=== PATIENT | male | born 1970 | race Caucasian/White ===

== ENCOUNTER 2017-11-20 14:05 | Inpatient (IN) ==
[2017-11-20] MEDS ORDERED: Vancomycin 1,000 MG VIAL IVPB ONE (14:37)
[2017-11-20] MEDS ORDERED: *HR* OxyCODONE/APAP 5/325 TABLET PO ONE (14:37)
--- NOTE | 2017-11-20 14:40 | Emergency Department Note ---
Disposition Clinical Impression: Cellulitis of second toe of left foot Disposition: Admitted As Inpatient Condition: Fair Referrals: Jay Schultz MD [Primary Care Provider] - Forms: ED Satisfaction Letter Time of Disposition: 15:25 (Dr Rockwell, Sessions) Wound/Laceration HPI - General Chief Complaint: ED Wound/Laceration Stated Complaint: toe is infected Time Seen by Provider: 11/20/17 14:18 Source: patient Mode of arrival: ambulatory Limitations: no limitations Nursing Notes Reviewed: Yes Vital Signs Reviewed: Yes - History of Present Illness Onset (ago): week(s) (5) Extremity Location: Left: foot (2nd toe) Place: home Patient Tetanus UTD: Yes Mechanism: other (Swelling of the left foot 47-year-old male presents to the ED secondary to failed outpatient treatment of second left toe infection. The patient underwent cyst removal at the joint of his distal second toe and the pin was removed on Wednesday. He noted increasing erythema, swelling and redness of the second toe with swelling of the foot in the last 5 days.) Associated symptoms: Reports: pain, unable to move injured part, other. Denies : loss of feeling/numbness, suspect foreign body present, nausea/vomiting, fever , syncope Pain Severity: moderate Treatments prior to arrival: other (Patient has been taking clindamycin 300 mg 3 times a day for the last 5 days.) - Related Data Home Medications Medication Instructions Recorded Confirmed Aspirin [Lo-Dose Aspirin EC] 81 mg PO DAILY 10/06/17 10/06/17 Cyanocobalamin (Vitamin B-12) 1,000 mcg PO DAILY 10/06/17 10/06/17 [Vitamin B-12] Lansoprazole [Prevacid] 60 mg PO DAILY 10/06/17 10/06/17 Losartan Potassium [Cozaar] 50 mg PO DAILY 10/06/17 10/06/17 Previous Rx's Medication Instructions Recorded Clindamycin HCl 300 mg PO TID #30 capsule 11/14/17 Mupirocin [Bactroban Oint] 22 appl TP BID #1 tube 11/14/17 Allergies Allergy/AdvReac Type Severity Reaction Status Date / Time Penicillins [PCN] Allergy Rash Verified 11/14/17 16:51 morphine AdvReac Irritable Verified 11/14/17 16:51 Past Medical History - Past Medical History Medical history: Reports: non-contributory Surgical history: Reports: non-contributory Psychiatric history: Reports: no psych history - Social History Smoking Status: Never smoker Smokeless Tobacco Status: No Alcohol use: Reports: none Drug use: Reports: none Physical Exam - General Limitations: no limitations General appearance: alert, in no apparent distress - Head Head exam: atraumatic, normocephalic, normal inspection - Respiratory Respiratory exam: Present: normal lung sounds bilaterally - Cardiovascular Cardiovascular exam: Present: regular rate, normal rhythm, normal heart sounds - Extremities Exam Extremities exam: Present: normal inspection, full ROM. Absent: tenderness, pedal edema - Expanded Lower Extremity Exam Ankle exam: Present: normal inspection, full ROM Foot/toe exam: Present: tenderness (Second toe circumferentially), swelling ( Second toe circumferentially), erythema (Second toe circumferentially), other ( Global left foot) Neurovascular/Tendon exam: Absent: motor deficit, sensory deficit, tendon deficit - Neurological Exam Neurological exam: Present: alert, oriented X3 - Psychiatric Psychiatric exam: Present: normal affect, normal mood - Skin Skin exam: Present: warm, dry, normal color Course Vital Signs Temperature 98.1 F 11/20/17 14:07 Pulse Rate 93 11/20/17 14:07 Respiratory Rate 20 11/20/17 14:07 Blood Pressure 146/85 11/20/17 14:07 O2 Sat by Pulse Oximetry 94 11/20/17 14:07 Temperature 98.1 F 11/20/17 14:07 Pulse Rate 93 11/20/17 14:07 Respiratory Rate 20 11/20/17 14:07 Blood Pressure 146/85 11/20/17 14:07 O2 Sat by Pulse Oximetry 94 11/20/17 14:07 Oxygen Delivery Oxygen Delivery Room Air Wound/Laceration - MDM Narrative Medical decision making narrative: Failed outpatient treatment with clindamycin of cellulitis. The patient presentation was discussed with tank insulator rubber cardiopulmonary supervisor as well as the hospitalist. He will be admitted for IV antibiotics and reassess in the next 24 hours. There is low clinical suspicion for osteomyelitis but will be relayed to the admitting hospitalist. - Differential Diagnosis Differential Diagnosis: Likely: abscess, fracture - Medical Records Medical records reviewed: Yes I reviewed the patient's medical records. - Lab Data Lab results reviewed: Yes I reviewed the patient's lab results. Result diagrams: 11/20/17 14:45 11/20/17 14:45 Lab Results 11/20/17 11/20/17 Range/Units 14:45 14:45 WBC 8.4 (4.3-11.1) K/mcL RBC 5.02 (4.19-5.50) M/mcL Hgb 14.6 (12.9-16.9) g/dL Hct 42.3 (37.5-50.1) % MCV 84.3 (83.0-100.0) fL MCH 29.1 (28.0-33.3) pg MCHC 34.5 (31.6-35.5) g/dL RDW 12.1 (11.5-14.5) % Plt Count 240 (140-400) K/mcL MPV 9.6 (9.4-12.4) fL Immature Gran % 0.4 (0-4) % Seg Neutrophils % 62.3 % Lymphocytes % 27.5 % Monocytes % 8.9 % Eosinophils % 0.7 % Basophils % 0.2 % Neutrophils # 5.2 (1.6-8.9) K/mcL Lymphocytes # 2.3 (0.6-4.6) K/mcL Monocytes # 0.7 (0.0-1.3) K/mcL Eosinophils # 0.1 (0.0-0.6) K/mcL Basophils # 0.0 (0.0-0.2) K/mcL Sodium 135 L (136-145) mEq/L Potassium 3.9 (3.5-5.1) mEq/L Chloride 100 (98-107) mEq/L Carbon Dioxide 27 (23-29) mEq/L BUN 9 (6-20) mg/dL Creatinine 1.26 (0.70-1.30) mg/dL Est GFR ( Amer) > 60 (> 60) Est GFR (Non-Af Amer) > 60 (> 60) BUN/Creatinine Ratio 7 (6-26) Glucose 160 H (70-105) mg/dL Calculated Osmolality 282 (280-300) Calcium 9.6 (8.6-10.3) mg/dL - Radiology Data Radiology results reviewed: Yes I reviewed the patient's radiology results. Foot X-Ray 11/20/17 14:39 IMPRESSION: Lucency of the distal aspect of the left 2nd toe worrisome for osteomyelitis. D/ / Haylee Magallanes Cha, MD / Haylee Magallanes Cha, MD Interpreting Provider: Haylee Magallanes Cha, MD
[2017-11-20 14:58] LABS: Basophils % 0.2 %; Eosinophils # 0.1 K/mcL (0.0-0.6); Eosinophils % 0.7 %; Hematocrit 42.3 % (37.5-50.1); Hemoglobin 14.6 g/dL (12.9-16.9); Immature Granulocytes % 0.4 % (0-4); Lymphocytes # 2.3 K/mcL (0.6-4.6); Lymphocytes % 27.5 %; Mean Corpuscular HGB Conc 34.5 g/dL (31.6-35.5); Mean Corpuscular Hemoglobin 29.1 pg (28.0-33.3); Mean Corpuscular Volume 84.3 fL (83.0-100.0); Mean Platelet Volume 9.6 fL (9.4-12.4); Monocytes # 0.7 K/mcL (0.0-1.3); Monocytes % 8.9 %; Neutrophils # 5.2 K/mcL (1.6-8.9); Platelet Count 240 K/mcL (140-400); Red Blood Count 5.02 M/mcL (4.19-5.50); Red Cell Distribution Width 12.1 % (11.5-14.5); Segmented Neutrophils % 62.3 %
[2017-11-20 15:13] LABS: BUN/Creatinine Ratio 7 (6-26); Blood Urea Nitrogen 9 mg/dL (6-20); Calcium 9.6 mg/dL (8.6-10.3); Carbon Dioxide 27 mEq/L (23-29); Chloride 100 mEq/L (98-107); Glucose 160 mg/dL (70-105); Osmolality,Calculated 282 (280-300); Potassium 3.9 mEq/L (3.5-5.1); Sodium 135 mEq/L (136-145); eGFR For African Americans > 60 (> 60); eGFR For Non-African Americans > 60 (> 60)
[2017-11-20] MEDS ORDERED: VANCOMYCIN IVPB ONE (16:00)
[2017-11-20] MEDS ORDERED: WATER IVPB ONE (16:00)
[2017-11-20] MEDS ORDERED: D5 IVPB ONE (16:00)
[2017-11-20] MEDS ORDERED: Ketorolac 30 MG/ML VIAL IVP PRN (23:02)
[2017-11-20] MEDS ORDERED: Acetaminophen 325 MG TABLET PO PRN (23:02)
[2017-11-20] MEDS ORDERED: Ondansetron 4 MG/2 ML VIAL IVP PRN (23:02)
[2017-11-20] MEDS ORDERED: Naloxone 0.4 MG/ML INJ IVP PRN (23:02)
[2017-11-20] MEDS ORDERED: *HR* OxyCODONE Immed Rel 5 MG TABLET PO PRN (23:02)
[2017-11-21] MEDS ORDERED: *HR* OxyCODONE/APAP 5/325 TABLET PO PRN (00:28)
[2017-11-21] MEDS ORDERED: Vancomycin 1,000 MG, Vancomycin 500 MG in 0.9 % Sodium Chloride 250 ML IVPB ONE (04:00)
[2017-11-21] MEDS: Cyanocobalamin (B-12) 1,000 MCG TABLET PO SCH (08:06)
[2017-11-21] MEDS: Aspirin Enteric Coated 81 MG Tablet PO SCH (08:06)
--- NOTE | 2017-11-21 11:47 | Internal Med History&Physical ---
Date of Encounter: 11/21/17 Time of Encounter: 11:00 Assessment and Plan (1) Osteomyelitis Current visit: Yes Status: Acute He was started on IV vancomycin through emergency room. I explained to him an attempt to identify a definite causative organism was important since he would likely need several weeks of IV antibiotic. He was agreeable to transfer to [facility] for ongoing intervention and treatment. Qualifiers: Osteomyelitis type: unspecified type Osteomyelitis location: foot Laterality: left Qualified Code(s): M86.9 - Osteomyelitis, unspecified (2) Cellulitis of second toe of left foot Current visit: Yes Status: Acute As per above Internal Medicine - H&P: HPI Chief complaint: Toe infection Admitted From: Emergency Dept History of present illness: Mr. Mott is a 47 year old male who came to emergency room after evidence of worsening infection in his left second toe. He reports a cyst was removed from the toe 10/06/2017 and an immobilization pin was placed. He had some evidence of infection 11/14/2017 and went to a local urgent care. X-rays were done and he was prescribed clindamycin. He had the pin removed at an office visit 2 days later and was told to continue the clindamycin. Over the next 72 hours there was increasing pain and redness in the toe. He came to emergency room 07/2017 and was found to have cellulitis of the toe. X-rays showed possible osteomyelitis. He was admitted to [facility] floor for ongoing care needs. He denies other bone joint or muscle disorders. Past Med Surg Social Fam HX - Past Medical History Medical history: non-contributory Additional medical history: dyslipidemia, smoking hx, rogers, depression Psychiatric history: no psych history - Past Surgical History Surgical History: non-contributory Additional surgical history: tonsillectomy-2014,sinus surgery-2014, tendon reattachment-2016 - Social History Smoking Status: Never smoker Smokeless Tobacco Status: No Alcohol use: none Drug use: none Internal Medicine - H&P: Meds Aspirin [Lo-Dose Aspirin EC] 81 mg PO DAILY 10/06/17 [History] Cyanocobalamin (Vitamin B-12) [Vitamin B-12] 1,000 mcg PO DAILY 10/06/17 [ History] Lansoprazole [Prevacid] 60 mg PO DAILY 10/06/17 [History] Losartan Potassium [Cozaar] 50 mg PO DAILY 10/06/17 [History] Clindamycin HCl 300 mg PO TID #30 capsule 11/14/17 [Rx] Mupirocin [Bactroban Oint] 22 appl TP BID #1 tube 11/14/17 [Rx] 3 Allergy/AdvReac Type Severity Reaction Status Date / Time Penicillins [PCN] Allergy Rash Verified 11/14/17 16:51 morphine AdvReac Irritable Verified 11/14/17 16:51 All Systems PM: A 10-system review of systems was performed and is negative for pertinent findings except as documented above in the HPI. Review of systems: Gen.: His weight has fluctuated and a 25 pound range for several years. Cardiovascular: He has history of hypertension but denies KS heart failure angina DVT or pulmonary embolus Respiratory: He smoked from age [age]. He denies chronic lung disease. GI: He has diagnosed hiatal hernia with GERD symptoms occasionally. He denies disorders of his liver gallbladder or exocrine pancreas : He has had kidney stones remotely without recent recurrence. He denies other kidney bladder prostate disorders Neurologic: He denies large distribution strokes or seizures. Endocrine: He has DM 2 that is diet controlled. Hemoglobin A1c was 6.5% on . He denies thyroid disease. He has hyperlipidemia but does not receive treatment at this time. Psychiatric: He has anxiety with panic attacks. He denies other mental health issues [place] skeletal: As per history of present illness. - Constitutional Vitals: Temp Pulse Resp BP Pulse Ox 98.4 F 64 16 120/65 93 11/21/17 08:01 11/21/17 08:01 11/21/17 08:01 11/21/17 08:01 11/21/17 08:01 Exam: Gen.: He is a well-developed well-nourished male lying in bed who appears in no severe distress HEENT: Head is atraumatic and normocephalic. Eyes: EOMI. There is no scleral icterus. Mouth: Mucosa is moist. Neck: Supple and nontender. There is no thyromegaly or adenopathy noted. Heart: Regular without murmurs gallops or ectopics Lungs: No wheezes or crackles are heard. Abdomen: Soft and nontender. No masses or guarding are noted. Extremities: There is no cyanosis edema or clubbing noted. Dorsalis pedis and posterior tibial pulses are 1-2 over 2 bilaterally. He has redness and swelling of the left second toe with erythema extending into the dorsum of the left forefoot. No lymphangitic streaking is noted. Neurologic: Mental status: He is talkative and a good historian. Cranial nerves : Smile is symmetric. Forehead wrinkles bilaterally. Tongue protrudes midline. EOMI. Motor: There is no pronator drift. Cerebellar: Finger to nose is intact bilaterally. Skin: Warm and dry Internal Med - H&P Results - Labs CBC & Chem 7: 11/20/17 14:45 11/20/17 14:45
[2017-11-22] MEDS: Aspirin Enteric Coated 81 MG Tablet PO SCH (07:53)
[2017-11-22] MEDS: Cyanocobalamin (B-12) 1,000 MCG TABLET PO SCH (07:53)
[2017-11-22] MEDS ORDERED: Gadolinium Contrast Agent (WT Based) IV PRN (16:40)
--- NOTE | 2017-11-22 16:51 | Internal Med Progress Note ---
Date of Encounter: 11/22/17 Time of Encounter: 16:30 - Assessment and plan (1) Osteomyelitis Current Visit: Yes Status: Acute Assessment and plan: November 22. I received a call from Dr. Nixon after evaluation today. He recommended a PICC line be placed and give 2 weeks IV Rocephin empirically. I felt it was appropriate to get an opinion from an infection disease specialist. I attempted to call Dr. Romero at [facility] but the office was closed. I spoke with an ID physician at [facility] who recommended MRI be done to further evaluate the toe. If osteomyelitis is suspected a bone biopsy was recommended to obtain culture specimen. Will proceed with MRI and PICC line placement. Attempted to call Dr. Nixon cell phone without answer. Qualifiers: Osteomyelitis type: unspecified type Osteomyelitis location: foot Laterality: left Qualified Code(s): M86.9 - Osteomyelitis, unspecified (2) Cellulitis of second toe of left foot Current Visit: Yes Status: Acute Assessment and plan: November 22. As per above - Subjective Interval history: November 22. He has no new complaints. - Constitutional Vitals: Temp Pulse Resp BP Pulse Ox 98 F 70 16 134/88 94 11/22/17 06:00 11/22/17 06:00 11/22/17 06:00 11/22/17 06:00 11/22/17 06:00 Exam: The appearance of the toe has not significant change. There is perhaps slightly less erythema of the distal foot. Internal Medicine: Result - Labs CBC & Chem 7: 11/20/17 14:45 11/20/17 14:45 Consult Discharge Plan - Plan Referrals: Jay Schultz MD [Primary Care Provider] - 1 week
[2017-11-23] MEDS: Aspirin Enteric Coated 81 MG Tablet PO SCH (07:43)
[2017-11-23] MEDS: Cyanocobalamin (B-12) 1,000 MCG TABLET PO SCH (07:43)
[2017-11-23] MEDS ORDERED: Lidocaine -MPF 1% 5 ML AMPUL INFILT ONE ×2 (08:37→09:15)
[2017-11-23 17:06] VITALS: BP 123/74
--- NOTE | 2017-11-23 18:20 | Discharge Summary ---
Date of Encounter: 11/23/17 Time of Encounter: 16:30 - Discharge Diagnosis (1) Osteomyelitis Priority: Primary Status: Acute Qualifiers: Osteomyelitis type: unspecified type Osteomyelitis location: foot Laterality: left Qualified Code(s): M86.9 - Osteomyelitis, unspecified (2) Cellulitis of second toe of left foot Priority: Secondary Status: Acute Hospital course: Mr. Mott is a 47 year old male who came to emergency room after evidence of worsening infection in his left second toe. He reports a cyst was removed from the toe 10/06/2017 and an immobilization pin was placed. He had some evidence of infection 11/14/2017 and went to a local urgent care. X-rays were done and he was prescribed clindamycin. He had the pin removed at an office visit 2 days later and was told to continue the clindamycin. Over the next 72 hours there was increasing pain and redness in the toe. He came to emergency room 07/2017 and was found to have cellulitis of the toe. X-rays showed possible osteomyelitis. He was admitted to [facility] for ongoing care needs. Initial orders were written by the emergency room physician. I saw him on November 21 and performed a history and physical. He was started on IV vancomycin through emergency room. I told him I felt that an attempt to identify a definite causative organism was important since he would likely need several weeks of IV antibiotics for osteomyelitis. He agreed to go to [facility] for intervention. Bed management at [facility] was called to arrange transfer but [facility] replied since the appliquer zigzag was going to be in [place] the next day the patient could remain at [facility] and be seen by the appliquer zigzag November 22. He saw the appliquer zigzag on November 22. Chef & Owner felt a PICC line should be placed for antibiotics for cellulitis. There was uncertainty if the changes seen on x- rays were related to pin insertion at the time of the original surgery. I ordered an MRI which was done the morning of November 23 at [facility]. PICC line was also placed while he was at [facility]. The MRI reported osteomyelitis changes of the distal and mid phalanx and possible proximal phalanx of the left second toe. I spoke with appliquer zigzag about this finding and he was still uncertain if this was true osteomyelitis or simply reactive changes from previous surgery. He agreed the patient could be admitted at [facility] and have infectious disease and podiatry continue care. However there were no beds available at [facility] for admission and the patient was transported back to [facility]. I discussed the situation with the patient and he wished to be transferred to [facility] for ongoing care needs. - Time Spent with Patient Total time spent providing and/or coordinating discharge services: - Discharge Medications Home Medications: Aspirin [Lo-Dose Aspirin EC] 81 mg PO DAILY 10/06/17 [History] Cyanocobalamin (Vitamin B-12) [Vitamin B-12] 1,000 mcg PO DAILY 10/06/17 [ History] Lansoprazole [Prevacid] 60 mg PO DAILY 10/06/17 [History] Losartan Potassium [Cozaar] 50 mg PO DAILY 10/06/17 [History] Clindamycin HCl 300 mg PO TID #30 capsule 11/14/17 [Rx] Mupirocin [Bactroban Oint] 22 appl TP BID #1 tube 11/14/17 [Rx] Allergies/Adverse Reactions: 3 Allergy/AdvReac Type Severity Reaction Status Date / Time Penicillins [PCN] Allergy Rash Verified 11/14/17 16:51 morphine AdvReac Irritable Verified 11/14/17 16:51 Date of admission: 11/22/17 16:53 Primary care physician: Jay Schultz MD Consults: 11/23/17 08:38 Consult to Invasive Line Access Team [CONS] Routine Reason for Consult: Picc Line Insertion Line Type: PICC PICC line indications: jail Med/Antibiotic - Constitutional Vitals: Temp Pulse Resp BP Pulse Ox 98.6 F 96 92 123/74 96 11/23/17 14:00 11/23/17 14:00 11/23/17 14:00 11/23/17 14:00 11/23/17 06:00 - Patient Status Disposition: Transfer Other Condition: Fair - Discharge Instructions
[2017-11-23] MEDS ORDERED: Aminoglycoside Consult 1 EACH MC ONE (20:00)
== END 2017-11-23 19:52 | disposition other institution (70) | DRG 541 ==
LOC: EMEROOPIK 14:05 → INPPIK 14:05
PROVIDERS: ADMIT Internal Medicine; ATTEND Internal Medicine